=== PATIENT | female | born 1935 | race Caucasian/White ===

== ENCOUNTER 2018-02-13 08:17 | Inpatient (IN) | payer MEDICARE, OTHER ==
[2018-02-13] MEDS: TRANEXAMIC ACID 1,000 MG in DEXTROSE 5% 100 ML IVPB (06:00)
[2018-02-13] MEDS: CEFAZOLIN 2 GM/50 ML (PMX) 50 ML IVPB (06:00)
[~2018-02-13 08:17] MED LIST: TRANEXAMIC ACID 1,000 MG in DEXTROSE 5% 100 ML IVPB
[2018-02-13] MEDS ORDERED: CEFAZOLIN 1 GM INJ (13:49)
[2018-02-13] MEDS ORDERED: ETOMIDATE 20 MG INJ (13:49)
[2018-02-13] MEDS ORDERED: ACETAMINOPHEN 1000MG/100ML IV 100 ML (13:49)
[2018-02-13] MEDS ORDERED: MIDAZOLAM 1 MG/ML 2 ML INJ (13:50)
[2018-02-13] MEDS ORDERED: ONDANSETRON 4 MG INJ (13:50)
[2018-02-13] MEDS ORDERED: BUPIVACAINE 0.75%/DEXT (SPINAL) 2 ML INJ (13:50)
[2018-02-13] MEDS ORDERED: ROPIVACAINE 0.5 % 30 ML VIAL (13:50)
[2018-02-13] MEDS ORDERED: METOCLOPRAMIDE 10 MG INJ (13:50)
[2018-02-13] MEDS ORDERED: FENTAnyl 50 MCG/ML VIAL (13:50)
[2018-02-13] MEDS ORDERED: SOD CHLORIDE 0.9% IRR (14:00)
[2018-02-13] MEDS ORDERED: TRANEXAMIC ACID 1000 MG IRR (14:00)
[2018-02-13] MEDS ORDERED: EPHEDrine SULFATE 50 MG/5 ML SYG (14:12)
[2018-02-13] MEDS: BACITRACIN 50000 UNITS INJ (14:35)
[2018-02-13] MEDS: POLYMYXIN B 500000 UNIT INJ (14:35)
[2018-02-13] MEDS ORDERED: oxyCODONE 5 MG TAB PO (16:00)
[2018-02-13] MEDS ORDERED: HYDROmorphONE (0.2 MG/ML) 10ML SYG IV ×2 (16:00)
[2018-02-13] MEDS ORDERED: SENNA/DOCUSATE NA (8.6MG/50MG) TAB PO (16:00)
[2018-02-13] MEDS ORDERED: EPHEDrine SULFATE 50 MG/5 ML SYG IV (16:00)
[2018-02-13] MEDS ORDERED: BISACODYL 10 MG SUPP PR (16:00)
[2018-02-13] MEDS ORDERED: ONDANSETRON 4 MG INJ IV (16:00)
[2018-02-13] MEDS ORDERED: DIPHENHYDRAMINE 50 MG INJ IV (16:00)
[2018-02-13] MEDS ORDERED: TRIMETHOBENZAMIDE 100 MG/ML VIAL IM (16:00)
[2018-02-13] MEDS ORDERED: NALOXONE (0.4 MG/ML) INJ IV (16:00)
[2018-02-13] MEDS ORDERED: ASPIRIN (EC) 325 MG TAB PO (16:00)
[2018-02-13] MEDS: ONDANSETRON 4 MG INJ IV ×2 (16:00→22:00)
[2018-02-13] MEDS ORDERED: NA PHOSPHATE/BIPHOS 133 ML ENEMA PR (16:00)
[2018-02-13] MEDS ORDERED: NACL 0.9% 3 ML SYG IV (16:00)
[2018-02-13] MEDS: CEFAZOLIN 1 GM/50 ML (PMX) 50 ML IVPB (16:39)
[2018-02-13] MEDS: DOCUSATE SODIUM 100 MG CAP PO (16:40)
[2018-02-13] MEDS: ASPIRIN (EC) 325 MG TAB PO (16:46)
[2018-02-13] MEDS: HYDROmorphONE (0.2 MG/ML) 10ML SYG IV ×2 (17:45→17:48)
[2018-02-13] MEDS: KETOROLAC 15 MG INJ IV (18:45)
[2018-02-13] MEDS: SOD CHLORIDE 0.9% 1,000 ML IV (19:03)
[2018-02-13] MEDS: DOCUSATE SODIUM 10 MG/ML (10ML CUP) PO (20:38)
[2018-02-13] MEDS: GABAPENTIN 100 MG CAP PO (20:38)
[2018-02-14] MEDS: KETOROLAC 15 MG INJ IV ×2 (00:10→21:12)
[2018-02-14] MEDS: CEFAZOLIN 1 GM/50 ML (PMX) 50 ML IVPB ×2 (00:10→10:58)
[2018-02-14] MEDS: ONDANSETRON 4 MG INJ IV ×2 (04:00→10:00)
[2018-02-14] MEDS: SOD CHLORIDE 0.9% 1,000 ML IV ×3 (04:19→21:14)
[2018-02-14] MEDS: BETHANECHOL 25 MG TAB PO (06:35)
[2018-02-14] MEDS: PANTOPRAZOLE (EC) 40 MG TAB PO (06:35)
[2018-02-14] MEDS: MAGNESIUM HYDROXIDE 30ML CUP PO (06:37)
[2018-02-14] MEDS: oxyCODONE 5 MG TAB PO ×5 (06:39→23:18)
[2018-02-14 07:46] LABS: ADD UMIC NO; UR ASCORBIC ACID NEGATIVE (NEGATIVE); UR BILIRUBIN (Dip) NEGATIVE (NEGATIVE); UR BLOOD (Dip) NEGATIVE (NEGATIVE); UR CLARITY CLEAR (CLEAR); UR COLOR YELLOW (YELLOW); UR GLUCOSE (Dip) NEGATIVE (NEGATIVE); UR KETONES (Dip) NEGATIVE (NEGATIVE); UR LEUKOCYTE ESTERASE (Dip) NEGATIVE Leu/ul (NEGATIVE); UR NITRITE (Dip) NEGATIVE (NEGATIVE); UR SPECIFIC GRAVITY (Dip) 1.024 (1.003-1.030); UR TOTAL PROTEIN (Dip) NEGATIVE (NEGATIVE); UR UROBILINOGEN (Dip) NEGATIVE (NEGATIVE)
[2018-02-14] MEDS ORDERED: DOCUSATE SODIUM 100 MG CAP PO (09:00)
[2018-02-14] MEDS: GABAPENTIN 100 MG CAP PO ×2 (10:59→21:08)
[2018-02-14] MEDS: ASPIRIN (EC) 325 MG TAB PO (11:01)
[2018-02-14] MEDS: CELECOXIB 200 MG CAP PO (11:01)
[2018-02-14 11:02] LABS: ADD MAN DIFF? NO
[2018-02-14] MEDS: FERROUS FUMARATE (SR) TAB PO ×2 (11:02→21:00)
[2018-02-14] MEDS: DOCUSATE SODIUM 10 MG/ML (10ML CUP) PO ×2 (11:02→21:09)
[2018-02-14 11:11] LABS: BASOPHILS % 0.3 % (0.0-2.0); EOSINOPHILS % 0.5 % (0.0-7.0); HEMATOCRIT 29.7 % (37.0-47.0); HEMOGLOBIN 10.7 g/dl (12.0-16.0); LYMPHOCYTES # 0.8 10^3/ul (0.8-2.9); LYMPHOCYTES % 10.8 % (15.0-51.0); MEAN CORPUSCULAR HEMOGLOBIN 36.3 pg (29.0-33.0); MEAN CORPUSCULAR VOLUME 100.7 fl (82.0-101.0); MEAN PLATELET VOLUME 9.7 fl (7.4-10.4); MONOCYTE # 0.7 10^3/ul (0.3-0.9); MONOCYTES % 9.7 % (0.0-11.0); NEUTROPHIL # 5.7 10^3/ul (1.6-7.5); NEUTROPHILS % 77.6 % (39.0-77.0); PLATELET COUNT 179 10^3/UL (140-415); RED BLOOD COUNT 2.95 10^6/ul (4.20-5.40); RED CELL DISTRIBUTION WIDTH 14.3 % (11.5-14.5)
[2018-02-14 11:11] LABS: WHITE BLOOD COUNT 7.4 10^3/ul (4.8-10.8)
[2018-02-14 11:24] LABS: ANION GAP 15 (8-16); BLOOD UREA NITROGEN 11 mg/dl (7-20); CALCIUM 8.3 mg/dl (8.4-10.2); CARBON DIOXIDE 25 mmol/L (21-31); CHLORIDE 100 mmol/L (97-110); CREATININE 0.75 mg/dl (0.44-1.00); GLUCOSE 145 mg/dl (70-220); POTASSIUM 4.2 mmol/L (3.5-5.1); SODIUM 136 mmol/L (135-144)
[2018-02-14] MEDS ORDERED: LACTULOSE PO (21:00)
[2018-02-14] MEDS: LACTULOSE 30ML CUP PO (21:45)
[2018-02-14] MEDS: CELECOXIB 100 MG CAP PO (23:18)
[2018-02-15] MEDS: PANTOPRAZOLE (EC) 40 MG TAB PO (04:52)
[2018-02-15] MEDS: oxyCODONE 5 MG TAB PO ×2 (04:52→13:49)
[2018-02-15 05:47] LABS: ADD MAN DIFF? NO
[2018-02-15 05:56] LABS: BASOPHILS % 0.6 % (0.0-2.0); EOSINOPHILS # 0.1 10^3/ul (0.0-0.5); EOSINOPHILS % 1.1 % (0.0-7.0); HEMATOCRIT 26.8 % (37.0-47.0); HEMOGLOBIN 9.4 g/dl (12.0-16.0); LYMPHOCYTES # 1.2 10^3/ul (0.8-2.9); LYMPHOCYTES % 16.5 % (15.0-51.0); MEAN CORPUSCULAR HEMOGLOBIN 34.9 pg (29.0-33.0); MEAN CORPUSCULAR HGB CONC 35.1 g/dl (32.0-37.0); MEAN CORPUSCULAR VOLUME 99.6 fl (82.0-101.0); MEAN PLATELET VOLUME 9.9 fl (7.4-10.4); MONOCYTE # 0.9 10^3/ul (0.3-0.9); MONOCYTES % 12.1 % (0.0-11.0); NEUTROPHIL # 4.8 10^3/ul (1.6-7.5); PLATELET COUNT 150 10^3/UL (140-415); RED BLOOD COUNT 2.69 10^6/ul (4.20-5.40); RED CELL DISTRIBUTION WIDTH 14.6 % (11.5-14.5)
[2018-02-15 06:17] LABS: ANION GAP 12 (8-16); BLOOD UREA NITROGEN 15 mg/dl (7-20); CALCIUM 8.3 mg/dl (8.4-10.2); CARBON DIOXIDE 25 mmol/L (21-31); CHLORIDE 101 mmol/L (97-110); CREATININE 0.76 mg/dl (0.44-1.00); GLUCOSE 144 mg/dl (70-220); POTASSIUM 3.8 mmol/L (3.5-5.1); SODIUM 134 mmol/L (135-144)
[2018-02-15] MEDS: SOD CHLORIDE 0.9% 1,000 ML IV (08:30)
[2018-02-15] MEDS: IOHEXOL 100 ML (10:15)
[2018-02-15] MEDS: SOD CHLORIDE 0.9% 100 ML (10:15)
[2018-02-15] MEDS: DOCUSATE SODIUM 10 MG/ML (10ML CUP) PO (11:22)
[2018-02-15] MEDS: ASPIRIN (EC) 325 MG TAB PO (11:23)
[2018-02-15] MEDS: CELECOXIB 100 MG CAP PO (11:23)
[2018-02-15] MEDS: GABAPENTIN 100 MG CAP PO (11:23)
[2018-02-15] MEDS: FERROUS FUMARATE (SR) TAB PO (11:23)
== END 2018-02-15 17:55 | disposition home health service (06) | DRG 470 ==
LOC: REC 08:17 → MS1 17:41
PROC: 0SR902A Replacement of Right Hip Joint with Metal on Polyethylene Synthetic Substitute, Uncemented, Open Approach (ICD-10-PCS; principal; 2018-02-13 13:52)
DX: M16.11 Unilateral primary osteoarthritis, right hip (principal); L40.50 Arthropathic psoriasis, unspecified; K21.9 Gastro-esophageal reflux disease without esophagitis; Z86.11 Personal history of tuberculosis
CPT/HCPCS: 71275; 72170; 80048; 81003; 85025; 86850; 86900; 86901; 87081; 87086; 88304; 88311; 93005; 93970; 97110; 97116; 97162; 97165; 97530